=== PATIENT | female | born 1945 | race Caucasian/White ===

== ENCOUNTER → 2016-07-13 | Outpatient (CLI) | payer MEDICARE, BC ==
[~2016-07-13] MED LIST: AMIO200T PO; ASPI-621 PO; ASPI325T4 PO; CALC-72 PO; CALCIUM PO; CHOL20002 PO; DOCU-30 PO; FISH OIL PO; FURO-92 PO; HYDR-3144 PO; MULT-658 PO; OMEG1CAP12 PO; POTA20TA14 PO; SOTA80TA PO; TRAM-28 PO; VITAMIN D PO; WARF5TAB7 PO
== END | disposition home or self-care (01) ==
LOC: RAD 13:33
PROVIDERS: ATTEND Family Medicine
DX: R53.1 Weakness (principal)
CPT/HCPCS: 70450

== ENCOUNTER 2016-09-12 11:16 | Inpatient (IN) | payer MEDICARE, BC ==
[~2016-09-12] VITALS: Ht 167.6 cm; Wt 57.4 kg
[~2016-09-12 11:16] MED LIST changes: -OMEG1CAP12 PO; +OMEG1CAP23 PO
[2016-09-12] MEDS ORDERED: FERR142T13 PO (13:16)
[2016-09-12] MEDS ORDERED: APIX5TAB PO (13:16)
[2016-09-12] MEDS ORDERED: LATA2.5D3 EACHEYE (13:16)
[2016-09-12 13:17] VITALS: BP 119/82
[2016-09-12] MEDS: PLEASE ENTER WEIGHT MC SCH ×2 (15:23→20:40)
[2016-09-12] MEDS ORDERED: PLEASE ENTER WEIGHT MC SCH (15:30)
[2016-09-12] MEDS ORDERED: PLEASE ENTER HEIGHT AND WEIGHT MC SCH (15:30)
[2016-09-12 16:44] LABS: BLOOD UREA NITROGEN 12 mg/dL (7-18)
[2016-09-12] MEDS: SOTALOL 80MG TABLET PO SCH (18:22)
[2016-09-12 18:23] VITALS: BP 120/85
[2016-09-12 19:29] VITALS: BP 107/74
[2016-09-12] MEDS: SODIUM CHLORIDE FLUSH 10ML SYR IVF SCH (20:38)
[2016-09-12] MEDS: APIXABAN 5 MG TABLET PO SCH (20:38)
[2016-09-12] MEDS: LATANOPROST OPHTH 0.005%, 2.5ML EACHEYE SCH (20:39)
[2016-09-13 03:39] VITALS: BP 113/79
[2016-09-13] MEDS: SOTALOL 80MG TABLET PO SCH ×2 (05:44→17:25)
[2016-09-13 07:56] VITALS: BP 112/78
[2016-09-13] MEDS: APIXABAN 5 MG TABLET PO SCH ×2 (08:52→20:07)
[2016-09-13] MEDS: MULTIVITAMIN 1 TABLET PO SCH (08:53)
[2016-09-13] MEDS: OMEGA-3/FISH OIL CAPSULE PO SCH (08:53)
[2016-09-13] MEDS: SODIUM CHLORIDE FLUSH 10ML SYR IVF SCH ×2 (08:53→20:08)
[2016-09-13 13:46] VITALS: BP 108/71
[2016-09-13] MEDS: LATANOPROST OPHTH 0.005%, 2.5ML EACHEYE SCH (20:08)
[2016-09-13 22:27] VITALS: BP 108/76
[2016-09-14 03:50] VITALS: BP 114/60
[2016-09-14] MEDS: SOTALOL 80MG TABLET PO SCH (06:27)
[2016-09-14 07:35] VITALS: BP 118/87
[2016-09-14] MEDS: SODIUM CHLORIDE FLUSH 10ML SYR IVF SCH (08:27)
[2016-09-14] MEDS: APIXABAN 5 MG TABLET PO SCH (08:27)
[2016-09-14] MEDS: OMEGA-3/FISH OIL CAPSULE PO SCH (09:00)
[2016-09-14] MEDS: MULTIVITAMIN 1 TABLET PO SCH (09:00)
[2016-09-14] MEDS ORDERED: PROPOFOL 10 MG/ML, 20ML ONE (11:49)
[2016-09-14 14:00] VITALS: BP 96/63
[2016-09-14] MEDS ORDERED: SOTA80TA18 PO (14:30)
== END 2016-09-14 16:15 | disposition home or self-care (01) | DRG 309 ==
LOC: 5SO 11:16 → DCLOUNGE 09-14 16:07
PROVIDERS: ADMIT Internal Medicine Cardiovascular Disease; ATTEND Internal Medicine Cardiovascular Disease
PROC: 5A2204Z Restoration of Cardiac Rhythm, Single (ICD-10-PCS; principal; 2016-09-14 13:30)
DX: I48.0 Paroxysmal atrial fibrillation (principal); D68.69 Other thrombophilia; Q25.1 Coarctation of aorta; Q23.1 Congenital insufficiency of aortic valve; E78.5 Hyperlipidemia, unspecified; R00.1 Bradycardia, unspecified; I10 Essential (primary) hypertension; I48.92 Unspecified atrial flutter; Z87.891 Personal history of nicotine dependence; Z95.0 Presence of cardiac pacemaker; Z95.2 Presence of prosthetic heart valve; Z95.3 Presence of xenogenic heart valve
CPT/HCPCS: 36415; 80048; 84439; 84443; 85014; 85018; 92960; 93005; J2704

== ENCOUNTER → 2017-02-28 | Outpatient (CLI) | payer MEDICARE, BC ==
[~2017-02-28] MED LIST changes: +APIX5TAB PO; +ASPI325T17 PO; -ASPI325T4 PO; +CALC-534 PO; -CALC-72 PO; +DOCU-131 PO; -DOCU-30 PO; +FERR142T13 PO; -HYDR-3144 PO; +HYDR-3245 PO; +LATA2.5D3 EACHEYE; +SOTA80TA18 PO; -TRAM-28 PO; +TRAM-47 PO
== END | disposition home or self-care (01) ==
LOC: CFH 09:06
PROVIDERS: ATTEND Family Medicine
DX: Z12.31 Encounter for screening mammogram for malignant neoplasm of breast (principal)
CPT/HCPCS: 77063; 77067

== ENCOUNTER 2017-11-23 09:33 | Day surgery (SDC) | payer MEDICARE, BC ==
[~2017-11-23] VITALS: Ht 167.6 cm; Wt 58.5 kg
[~2017-11-23 09:33] MED LIST changes: -CHOL20002 PO; +CHOL200052 PO; +WARF-36 PO; -WARF5TAB7 PO
[2017-11-23 11:18] VITALS: BP 140/71
[2017-11-23] MEDS ORDERED: MIDAZOLAM 1 MG/ML, 2ML ONE ×2 (11:20→12:11)
[2017-11-23] MEDS ORDERED: FENTANYL PF 100 MCG/2ML ONE (11:20)
[2017-11-23] MEDS ORDERED: LIDOCAINE 2%, 10ML ONE (11:21)
[2017-11-23] MEDS ORDERED: SODIUM CHLORIDE 0.9% 1,000 ML IV ONE (12:00)
[2017-11-23] MEDS ORDERED: HEPARIN 1,000 UNITS/ML, 10ML ONE (12:03)
[2017-11-23] MEDS ORDERED: VERAPAMIL 2.5 MG/ML, 2ML ONE (12:03)
[2017-11-23 12:20] LABS: BASOPHILS # (AUTO) 0.03 x10^3/uL (0-0.1); BASOPHILS % (AUTO) 1 % (0-1); EOSINOPHILS # (AUTO) 0.18 x10^3/uL (0-0.4); EOSINOPHILS % (AUTO) 4 % (1-7); LYMPHOCYTES % (AUTO) 21 % (22-44); MD NO; MEAN CORPUSCULAR HEMOGLOBIN 33.5 pg (27.0-34.8); MEAN CORPUSCULAR HGB CONC 34.4 g/dL (32.4-35.8); MEAN CORPUSCULAR VOLUME 97.2 fL (80-100); MEAN PLATELET VOLUME 7.4 fL (7.4-10.4); MONOCYTES # (AUTO) 0.43 x10^3/uL (0.2-0.8); MONOCYTES % (AUTO) 8 % (2-9); NEUTROPHILS # (AUTO) 3.49 x10^3/uL (1.8-6.8); NEUTROPHILS % (AUTO) 67 % (42-75); PLATELET COUNT 169 x10^3/uL (130-400); RED BLOOD COUNT 4.43 x10^6/uL (3.82-5.3); RED CELL DISTRIBUTION WIDTH 12.8 % (9.6-15.2)
[2017-11-23 12:57] LABS: CHLORIDE 106 mmol/L (98-107)
[2017-11-23 13:17] LABS: ALANINE AMINOTRANSFERASE 22 U/L (12-78); ALBUMIN 3.7 g/dL (3.4-5.0); ALKALINE PHOSPHATASE 59 U/L (45-117); ANION GAP 10 mmol/L (5-15); BILIRUBIN,TOTAL 0.8 mg/dL (0.2-1.0); CALCIUM 8.7 mg/dL (8.5-10.1); CREATININE 0.82 mg/dL (0.55-1.02); TOTAL PROTEIN 6.7 g/dL (6.4-8.2)
== END 2017-11-23 15:59 | disposition home or self-care (01) ==
LOC: CACL 09:33
PROVIDERS: ATTEND Internal Medicine Cardiovascular Disease
DX: I35.0 Nonrheumatic aortic (valve) stenosis (principal); E78.5 Hyperlipidemia, unspecified; I31.3 Pericardial effusion (noninflammatory); I48.0 Paroxysmal atrial fibrillation; Z87.891 Personal history of nicotine dependence; Z88.6 Allergy status to analgesic agent; Z88.5 Allergy status to narcotic agent; Z95.0 Presence of cardiac pacemaker; Z98.890 Other specified postprocedural states
CPT/HCPCS: 36415; 80053; 85025; 93458; 99156; C1894; J1644; J2250; J3010; J3490; Q9967; J2001

== ENCOUNTER → 2017-12-04 | Outpatient (CLI) | payer MEDICARE, BC ==
[~2017-12-04] MED LIST changes: +OMNIPAQUE 350 MG/ML, 150 ML BOTTLE ONE
== END | disposition home or self-care (01) ==
LOC: CVU 09:57
PROVIDERS: ATTEND Internal Medicine Cardiovascular Disease
DX: I65.23 Occlusion and stenosis of bilateral carotid arteries (principal); M48.04 Spinal stenosis, thoracic region; Q74.0 Other congenital malformations of upper limb(s), including shoulder girdle; R19.00 Intra-abdominal and pelvic swelling, mass and lump, unspecified site; Z95.2 Presence of prosthetic heart valve
CPT/HCPCS: 71275; 74174; 93880; 94060; 94726; 94729; Q9967

== ENCOUNTER → 2018-03-15 | Outpatient (CLI) | payer MEDICARE, BC ==
[~2018-03-15] MED LIST changes: -ASPI-621 PO; +ASPI81TA45 PO; +DORZ10DR28 OP; -OMNIPAQUE 350 MG/ML, 150 ML BOTTLE ONE; +TIMO5DRO5 OP
== END | disposition home or self-care (01) ==
LOC: CFH 12:17
PROVIDERS: ATTEND Family Medicine
DX: M85.88 Other specified disorders of bone density and structure, other site (principal); Z78.0 Asymptomatic menopausal state
CPT/HCPCS: 77080

== ENCOUNTER → 2019-01-08 | Outpatient (CLI) | payer MEDICARE, BC ==
[~2019-01-08] MED LIST changes: +CEPH-368 PO
[2019-01-08 16:10] LABS: BASOPHILS # (AUTO) 0.04 x10^3/uL (0-0.1); BASOPHILS % (AUTO) 1 % (0-1); EOSINOPHILS # (AUTO) 0.34 x10^3/uL (0-0.4); EOSINOPHILS % (AUTO) 6 % (1-7); LYMPHOCYTES # (AUTO) 1.53 x10^3/uL (1-3.4); LYMPHOCYTES % (AUTO) 26 % (22-44); MD NO; MEAN CORPUSCULAR HEMOGLOBIN 34.2 pg (27.0-34.8); MEAN CORPUSCULAR HGB CONC 33.7 g/dL (32.4-35.8); MEAN CORPUSCULAR VOLUME 101.4 fL (80-100); MEAN PLATELET VOLUME 8.6 fL (7.4-10.4); MONOCYTES # (AUTO) 0.46 x10^3/uL (0.2-0.8); MONOCYTES % (AUTO) 8 % (2-9); NEUTROPHILS # (AUTO) 3.56 x10^3/uL (1.8-6.8); NEUTROPHILS % (AUTO) 60 % (42-75); PLATELET COUNT 135 x10^3/uL (130-400); RED BLOOD COUNT 4.56 x10^6/uL (3.82-5.3); RED CELL DISTRIBUTION WIDTH 13.5 % (9.6-15.2)
[2019-01-08 16:21] LABS: CREATININE 0.87 mg/dL (0.55-1.02)
[2019-01-08 16:28] LABS: ANION GAP 3 mmol/L (5-15); CHLORIDE 104 mmol/L (98-107)
== END | disposition home or self-care (01) ==
LOC: CFH 13:20
PROVIDERS: ATTEND Internal Medicine Cardiovascular Disease
DX: Z01.810 Encounter for preprocedural cardiovascular examination (principal); I47.2 Ventricular tachycardia; I48.0 Paroxysmal atrial fibrillation; Z95.0 Presence of cardiac pacemaker; Z95.2 Presence of prosthetic heart valve
CPT/HCPCS: 36415; 71046; 80048; 85025

== ENCOUNTER 2019-01-09 06:45 | Day surgery (SDC) | payer MEDICARE, BC ==
[~2019-01-09] VITALS: Ht 167.6 cm; Wt 58.0 kg
[~2019-01-09 06:45] MED LIST changes: -CEPH-368 PO
[2019-01-09] MEDS ORDERED: SODIUM CHLORIDE 0.9% 1,000 ML IV SCH (06:53)
[2019-01-09 07:25] VITALS: BP 154/76
[2019-01-09] MEDS ORDERED: FENTANYL PF 100 MCG/2ML ONE (07:25)
[2019-01-09] MEDS ORDERED: MIDAZOLAM 1 MG/ML, 5ML ONE (07:25)
[2019-01-09] MEDS ORDERED: LIDOCAINE 2%, 20ML ONE (07:25)
[2019-01-09] MEDS ORDERED: CEFAZOLIN PMX 1GM/50ML 50 ML ONE (07:25)
[2019-01-09] MEDS ORDERED: CEFAZOLIN 1,000 MG ONE (07:26)
[2019-01-09] MEDS ORDERED: [UNRECOGNIZED DRUG - OTHER] PO SCH (09:00)
[2019-01-09] MEDS ORDERED: ACETAMINOPHEN 325 MG TABLET PO PRN (09:00)
[2019-01-09] MEDS ORDERED: TEMPLATE NON-FORMULARY MED. (Cholecalciferol (Vitamin D3)** (Vitamin D**) 2,000 UNIT) PO SCH (09:00)
[2019-01-09] MEDS ORDERED: MULTIVITAMIN 1 TABLET PO SCH (09:00)
[2019-01-09] MEDS ORDERED: VITAMIN D3 PO SCH (09:00)
[2019-01-09] MEDS ORDERED: APIXABAN 5 MG TABLET PO SCH (09:00)
[2019-01-09] MEDS ORDERED: SODIUM CHLORIDE FLUSH 10ML SYR IVF SCH (09:00)
[2019-01-09] MEDS ORDERED: CALCIUM CARBONATE PO SCH (09:00)
[2019-01-09] MEDS ORDERED: FERROUS SULFATE 142 MG PO SCH (09:00)
[2019-01-09] MEDS ORDERED: CEPH-368 PO (09:47)
[2019-01-09] MEDS ORDERED: SOTALOL 80MG TABLET PO SCH (18:00)
== END 2019-01-09 11:21 | disposition home or self-care (01) ==
LOC: CACL 06:45
PROVIDERS: ATTEND Internal Medicine Cardiovascular Disease
DX: Z45.010 Encounter for checking and testing of cardiac pacemaker pulse generator [battery] (principal); I10 Essential (primary) hypertension; E78.5 Hyperlipidemia, unspecified; E66.3 Overweight; Z68.20 Body mass index [BMI] 20.0-20.9, adult; Z79.891 Long term (current) use of opiate analgesic; Z79.01 Long term (current) use of anticoagulants; Z79.899 Other long term (current) drug therapy; Z87.891 Personal history of nicotine dependence; Z88.5 Allergy status to narcotic agent; Z88.8 Allergy status to other drugs, medicaments and biological substances; Z95.2 Presence of prosthetic heart valve
CPT/HCPCS: 33228; 99156; C1785; J0690; J2250; J3010

== ENCOUNTER → 2019-01-13 | Outpatient (CLI) | payer MEDICARE, BC ==
[~2019-01-13] MED LIST changes: +CEPH-368 PO
== END | disposition home or self-care (01) ==
LOC: EDSTATUS 09:00 → CFH 13:29 → EDSTATUS 14:00
PROVIDERS: ATTEND Internal Medicine Cardiovascular Disease
DX: I08.8 Other rheumatic multiple valve diseases (principal); I48.91 Unspecified atrial fibrillation; Z95.0 Presence of cardiac pacemaker
CPT/HCPCS: 93306

== ENCOUNTER → 2019-10-28 | Outpatient (CLI) | payer MEDICARE, BC | END | disposition home or self-care (01) | LOC: CFH 08:41 | PROVIDERS: ATTEND Internal Medicine Cardiovascular Disease | DX: I11.9 Hypertensive heart disease without heart failure (principal); I07.1 Rheumatic tricuspid insufficiency; I48.0 Paroxysmal atrial fibrillation | CPT/HCPCS: 93306 ==

== ENCOUNTER → 2020-01-19 | Outpatient (CLI) | payer MEDICARE, BC ==
[~2020-01-19] MED LIST changes: -LATA2.5D3 EACHEYE; +LATA2.5D4 EACHEYE
== END | disposition home or self-care (01) ==
LOC: CFH 09:53
PROVIDERS: ATTEND Internal Medicine
DX: Z12.31 Encounter for screening mammogram for malignant neoplasm of breast (principal); M85.88 Other specified disorders of bone density and structure, other site; N95.8 Other specified menopausal and perimenopausal disorders
CPT/HCPCS: 77063; 77067; 77080